=== PATIENT | male | born 1990 | race Caucasian/White ===

== ENCOUNTER 2018-07-31 17:04 | Emergency (ER) | payer SELFPAY ==
[2018-07-31 17:05] VITALS: BP 140/77; PULSE 89; RESP 16; TEMP 37.1; O2SAT 98; BMI 30.2
--- NOTE | 2018-07-31 17:26 | ED.VISSUMM ---
- ER Visit Summary Date of Service: 07/31/18 Chief Complaint: Left wrist pain History of Present Illness: The patient is a 28 M increasing left wrist pain since yesterday. Works for a moving company also increased cold. Reports have a found wrist fracture 2017 was referred to orthopedics Dr. Rubin. Reports there was needed surgery for likely osteotomy however he did not go through with this. Followed by Dr. Cleaning. Allergy Grandin due to reaction from treatment was placed on oxycodone previously. He does have a hard splint that he has been using. Tylenol Motrin taken with no relief. No new injuries. No paresthesias. Last prescription was a year ago per patient. Physical Examination: General: Alert and oriented ?3, no acute distress HEENT: Normocephalic, atraumatic. Moist mucosa membranes Neck: supple, nontender. Cardiovascular: Regular rate and rhythm, no murmurs Respiratory: Normal breath sounds, symmetric, no distress Abdomen: Soft, nontender, nondistended Extremities: Left upper extremity: Active range of motion elbow there is tenderness of the scaphoid bone. Skin intact. Neurovascular intact distally. Neuro: no focal neurological deficits. Test Results: [] Emergency Department Course and Treatment: Vital signs stable, records reviewed did have a confirmed fracture on x-ray 2017. History concerns for avascular necrosis of scaphoid that has not been surgically manage from recommendations. He states he has a second opinion follow-up with [facility] in 1 week. Orders report check last prescription was a year ago. Short prescription of Percocet. Follow with [facility] as scheduled. Treatment Plan: [] Disposition: Discharge Impression: 1. Left wrist pain 2. History avascular necrosis left scaphoid bone This note was generated with [employer] dictation software. It may contain incorrect words, spelling, and punctuation that were not noted in review of the chart prior to signing ED Disposition - Plan for ED Patient: Disposition: Home or Assisted Living Diagnosis: left wrist pain, hx avn left scaphoid Prescriptions: Oxycodone HCl/Acetaminophen [Percocet 5/325] 1 tablet PO Q6H PRN PRN 3 Days #12 tablet PRN Reason: Pain Referrals: Shai Cleaning MD [Primary Care Provider] - Additional Instructions: previous scaphoid fx in 2017 on left. likely AVN of scaphoid. keep appointment with ortho in 1 week.
== END 2018-07-31 17:44 | disposition home or self-care (01) ==
PROVIDERS: Emergency Provider Emergency Medicine; Family Provider Family Medicine; PCP Family Medicine
DX: M25.532 Pain in left wrist (principal); M87.9 Osteonecrosis, unspecified
CPT/HCPCS: 99282

== ENCOUNTER 2018-08-20 14:22 | Emergency (ER) | payer SELFPAY ==
[2018-08-20 14:23] VITALS: BP 161/79; PULSE 72; RESP 16; TEMP 36.6; O2SAT 97; BMI 29.4
--- NOTE | 2018-08-20 15:10 | ED.VISSUMM ---
- ER Visit Summary Date of Service: 08/20/18 Chief Complaint: [] Acute recurrent left wrist pain history of what sounds like avascular necrosis History of Present Illness: The patient is a 28 M [] reports he suffered a fracture involving 1 of his wrist bones to the thumb side sometime ago he is been seen multiple times orthopedics and it indicates that that bone and then he has a bone spur that is complicating his condition is been seen by [facility] hand physicians and he is scheduled to be seen by [facility] hand physicians related to a second opinion on further management he has no 1 who can prescribe him pain management, he is scheduled to see [facility] physicians tomorrow indicates the pain is such that even wearing the splint he has worsening pain he was given a short course of some unspecified medicine through the emergency department earlier this month and is wondering if he can have just a few of those tablets to help him sleep today there is been no trauma no other issues. He has no history of drug abuse or addiction Physical Examination: [] Vitals are unremarkable, he does have some snuffbox discomfort the left upper extremity otherwise unremarkable hand function is normal neurovascular function normal he assures me this is his chronic state Test Results: [] Emergency Department Course and Treatment: [] We went through a long list of potential medications he lists allergies to acetaminophen and hydrocodone it is unclear which medication he was actually given so I will speak with the drug [facility] where he got the prescription filled as whatever medication he was given he had no issues with it and he will be given 3 tablets to use at bedtime until he can establish pain management with his outpatient providers Treatment Plan: [] Disposition: [] Home stable Impression: [] Acute recurrent chronic left wrist pain This note was generated with [employer] dictation software. It may contain incorrect words, spelling, and punctuation that were not noted in review of the chart prior to signing ED Disposition - Plan for ED Patient: Referrals: Shai Cleaning MD [Primary Care Provider] -
--- NOTE | 2018-08-20 15:22 | ED.DEP ---
ED Disposition - Plan for ED Patient: Instructions: ED Fx Wrist Navicular Conf Prescriptions: Oxycodone HCl/Acetaminophen [Percocet 5/325] 1 tab PO Q6H PRN PRN #4 tab PRN Reason: Pain Referrals: Shai Cleaning MD [Primary Care Provider] -
[2018-08-20 15:53] VITALS: RESP 18; O2SAT 99
== END 2018-08-20 15:54 | disposition home or self-care (01) ==
PROVIDERS: Emergency Provider Emergency Medicine; Family Provider Family Medicine; PCP Family Medicine
DX: M25.532 Pain in left wrist (principal); G89.29 Other chronic pain
CPT/HCPCS: 99282

== ENCOUNTER 2018-08-22 14:49 | Emergency (ER) | payer SELFPAY ==
[2018-08-22 14:50] VITALS: BP 141/89; PULSE 66; RESP 16; TEMP 36.6; O2SAT 100; BMI 29.5
--- NOTE | 2018-08-22 15:26 | ED.VISSUMM ---
- ER Visit Summary Date of Service: 08/22/18 Chief Complaint: Wrist pain History of Present Illness: The patient is a 28 M with wrist pain it is chronic recurrent. He is known to have a scaphoid fracture probably about 12-15 years ago. He has chronic pain he is seeing a surgeon for this he has quite a bit of pain at night he has a new appointment in 2 days. Physical Examination: He is wearing a brace is neurovascularly intact he is quite a little bit of pain over the scaphoid and wrist region Patient will be treated with analgesia and discharged to follow-up with his surgeons Impression: Wrist pain chronic left This note was generated with [employer] dictation software. It may contain incorrect words, spelling, and punctuation that were not noted in review of the chart prior to signing ED Disposition - Plan for ED Patient: Disposition: Home or Assisted Living Prescriptions: Oxycodone HCl/Acetaminophen [Percocet 5/325] 1 tab PO Q6H PRN PRN 3 Days #10 tab PRN Reason: Pain Additional Instructions: Follow-up with your surgeons
--- NOTE | 2018-08-22 15:29 | ED.DCSUM_ITS ---
- ER Visit Summary Date of Service: 08/22/18 Chief Complaint: Wrist pain History of Present Illness: The patient is a 28 M with wrist pain it is chronic recurrent. He is known to have a scaphoid fracture probably about 12-15 years ago. He has chronic pain he is seeing a surgeon for this he has quite a bit of pain at night he has a new appointment in 2 days. Physical Examination: He is wearing a brace is neurovascularly intact he is quite a little bit of pain over the scaphoid and wrist region Patient will be treated with analgesia and discharged to follow-up with his surgeons Impression: Wrist pain chronic left This note was generated with [email or web address] dictation software. It may contain incorrect words, spelling, and punctuation that were not noted in review of the chart prior to signing ED Disposition - Plan for ED Patient: Disposition: Home or Assisted Living Prescriptions: Oxycodone HCl/Acetaminophen [Percocet 5/325] 1 tab PO Q6H PRN PRN 3 Days #10 tab PRN Reason: Pain Additional Instructions: Follow-up with your surgeons
== END 2018-08-22 15:54 | disposition home or self-care (01) ==
LOC: ED 15:44
PROVIDERS: Emergency Provider Emergency Medicine; Family Provider Family Medicine; PCP Family Medicine
DX: M25.532 Pain in left wrist (principal); G89.29 Other chronic pain
CPT/HCPCS: 99282

== ENCOUNTER 2018-09-15 16:43 | Emergency (ER) | payer SELFPAY ==
[2018-09-15 16:44] VITALS: BP 164/94; PULSE 80; RESP 17; TEMP 36.7; O2SAT 98; BMI 30.3
--- NOTE | 2018-09-15 17:12 | ED.DCSUM_ITS ---
- ER Visit Summary Date of Service: 09/15/18 Chief Complaint: Left wrist pain History of Present Illness: The patient is a 28 M with chronic left wrist pain secondary to a nonhealing scaphoid fracture. Patient has been referred to multiple doctors and is currently seeing , hand surgeon at [facility]. Patient needs to have 2 surgeries performed on his wrist. He is supposed to receive a call tomorrow to schedule for surgery which will be performed within the next 3 weeks. Patient states that he in the past has been given Percocet to help with his pain. He takes a half a tab at night to help him sleep. He is still working full-time and trying to support his family. His primary care physician states he is not able to write the patient for any pain medication. Patient states the hand surgeon told him he would not write pain medication until after a procedures performed. Physical Examination: Vital signs significant for blood pressure 164/94, otherwise unremarkable. Patient sitting in a bedside chair. Left upper extremity examination is in a Velcro wrist splint. Wrist splint is removed and patient has focal tenderness of the left scaphoid. He has strong distal pulses. Normal cap refill and sensation. He does have increased pain with wrist extension. There is no tenderness of the elbow or shoulder. Test Results: [] Emergency Department Course and Treatment: Did do an oars report. His last prescription was for 4 tabs of Percocet on August 20. Patient received a short course of Percocet and will talk to his orthopedic surgeon tomorrow to arrange his surgery. Treatment Plan: [] Disposition: Discharge Impression: Acute on chronic left wrist pain secondary to nonhealing scaphoid fracture This note was generated with [employer] dictation software. It may contain incorrect words, spelling, and punctuation that were not noted in review of the chart prior to signing ED Disposition - Plan for ED Patient: Referrals: Shai Cleaning MD [Primary Care Provider] -
--- NOTE | 2018-09-15 17:12 | ED.DEP ---
ED Disposition - Plan for ED Patient: Disposition: Home or Assisted Living Instructions: ED Fx Wrist Navicular Conf Prescriptions: Oxycodone HCl/Acetaminophen [Percocet 5/325] 1 tablet PO Q6H PRN PRN 5 Days #20 tablet PRN Reason: Pain Additional Instructions: Follow-up with your surgeon tomorrow as scheduled.
== END 2018-09-15 17:36 | disposition home or self-care (01) ==
LOC: ED 17:25
PROVIDERS: Emergency Provider Emergency Medicine; Family Provider Family Medicine; PCP Family Medicine
DX: S62.002G Unspecified fracture of navicular [scaphoid] bone of left wrist, subsequent encounter for fracture with delayed healing (principal); X58.XXXD Exposure to other specified factors, subsequent encounter; G89.29 Other chronic pain
CPT/HCPCS: 99282

== ENCOUNTER 2018-09-25 16:56 | Emergency (ER) | payer SELFPAY ==
[2018-09-25 16:58] VITALS: BP 134/73; PULSE 72; RESP 17; TEMP 36.8; O2SAT 95
--- NOTE | 2018-09-25 18:48 | ED.VISSUMM ---
- ER Visit Summary Date of Service: 09/25/18 Chief Complaint: Acute on chronic left wrist pain History of Present Illness: The patient is a 28 M history of a prior scaphoid fracture the never had cared for at the time of the injury. He developed a nonunion and has chronic left wrist pain. He seen a hand specialist at the [facility] in [place] and there is surgery upcoming at the end of September. Basically states with ibuprofen and ice is helping but he cannot sleep at night and was requesting something for pain. Physical Examination: Well-appearing young male. Vital signs are stable. Afebrile. No distress. HEENT exam unremarkable. Lungs clear to auscultation. Heart regular rhythm no murmur. Abdomen soft nontender. Remedies moves all 4. Left wrist mild tenderness at the medial aspect of the wrist. Mild swelling. He has full flexion limited extension normal radial and ulnar deviation. Left hand is neurovascular intact. No cellulitis. No lymphangitic streaking. He states this is normally how his wrist looks since the injury. Otherwise exam unremarkable. Test Results: None I did review her prior x-ray. Emergency Department Course and Treatment: He will continue his anti-inflammatories. I will write him for a limited Percocet. Treatment Plan: Motrin ice and elevate. Follow-up with his hand specialist. Disposition: discarge Impression: Acute on chronic left wrist pain with a known history of a scaphoid fracture with a nonunion This note was generated with [employer] dictation software. It may contain incorrect words, spelling, and punctuation that were not noted in review of the chart prior to signing ED Disposition - Plan for ED Patient: Referrals: Shai Cleaning MD [Primary Care Provider] -
--- NOTE | 2018-09-25 18:50 | ED.DEP ---
ED Disposition - Plan for ED Patient: Disposition: Home or Assisted Living Prescriptions: Oxycodone HCl/Acetaminophen [Percocet 5/325] 1 tab PO Q6H PRN PRN 10 Days #20 tab PRN Reason: Pain Referrals: Shai Cleaning MD [Primary Care Provider] - Additional Instructions: Ice to wrist. Motrin for pain. Very limited Percocet for chronic pain.
== END 2018-09-25 19:10 | disposition home or self-care (01) ==
PROVIDERS: Emergency Provider Emergency Medicine; Family Provider Family Medicine; PCP Family Medicine
DX: S62.002K Unspecified fracture of navicular [scaphoid] bone of left wrist, subsequent encounter for fracture with nonunion (principal); X58.XXXD Exposure to other specified factors, subsequent encounter; M25.532 Pain in left wrist; G89.29 Other chronic pain
CPT/HCPCS: 99282

== ENCOUNTER 2018-10-11 14:15 | Emergency (ER) | payer SELFPAY ==
[2018-10-11 14:16] VITALS: BP 171/83; PULSE 63; RESP 16; TEMP 36.3; O2SAT 100; BMI 29.5
--- NOTE | 2018-10-11 14:58 | ED.VISSUMM ---
- ER Visit Summary Date of Service: 10/11/18 Chief Complaint: [] Left wrist pain scheduled for surgery soon requesting refill of narcotic medications History of Present Illness: The patient is a 28 M [] has a history of left wrist pain injury possibly a navicular fracture he indicates is scheduled to be seen by [facility] hand surgeon sometime this month to have surgery to help relieve the pain he indicates he has been seeing multiple orthopedic surgeon, his primary care outpatient providers, he was seen by [facility] pain management, and these physicians prescribed nonnarcotic medications and otherwise have told him they cannot further manage his pain he presents the emergency department requesting a refill of his I believe Percocet medication, he indicates he received that medication only from the emergency department as no and also refill it the last time he received it was over a month ago when he made it last for the full month indicates he has no other physicians will prescribe this medication for him, he is wearing his splint he indicates there is been no new injury no new issues related to his extremity Physical Examination: [] Is in no distress left upper extremity has some discomfort over the snuffbox and hand function is normal the wrist and forearm appear unremarkable his general medical exam appears unremarkable Test Results: [] Emergency Department Course and Treatment: [] Long conversation with the patient I explained to him that given the current requirements and regulations set by the [facility] the [facility] and multiple other regulators the emergency department is not able to further manage his pain, the emergency department cannot provide him narcotic medications the last time he obtained them was likely related to a courtesy for him as he was in between providers and if he needed further pain management he must discuss options with his outpatient providers in the for other physicians he has been seeing, I did offer him IM Toradol and he refused that and he left the emergency department upset that his prescription was not refilled Treatment Plan: [] Disposition: [] Home stable Impression: [] Left wrist pain, dissatisfied with pain management requesting refill of narcotic medications This note was generated with [employer] dictation software. It may contain incorrect words, spelling, and punctuation that were not noted in review of the chart prior to signing ED Disposition - Plan for ED Patient: Referrals: Shai Cleaning MD [Primary Care Provider] -
--- NOTE | 2018-10-11 15:00 | ED.RN ---
PATIENT LEFT BEFORE BEING D/C.
--- NOTE | 2018-10-11 15:00 | ED.DEP ---
ED Disposition - Plan for ED Patient: Instructions: ED Fx Wrist General Referrals: Shai Cleaning MD [Primary Care Provider] - Additional Instructions: Please follow-up with your outpatient providers for further pain management options as the emergency department cannot provide narcotic medications on an ongoing basis or manage the chronic pain
--- NOTE | 2018-10-11 15:11 | ED.RN ---
PT LEFT PRIOR TO RECEIVING DISCHARGE INSTRUCTIONS.
== END 2018-10-11 15:16 | disposition home or self-care (01) ==
LOC: ED 15:09
PROVIDERS: Emergency Provider Emergency Medicine; Family Provider Family Medicine; PCP Family Medicine
DX: M25.532 Pain in left wrist (principal)
CPT/HCPCS: 99282

== ENCOUNTER 2018-11-01 11:58 | Emergency (ER) | payer SELFPAY ==
[2018-11-01 12:00] VITALS: BP 180/85; PULSE 79; RESP 17; TEMP 36.7; O2SAT 99; BMI 29.5
--- NOTE | 2018-11-01 12:16 | ED.VISSUMM ---
- ER Visit Summary Date of Service: 11/01/18 Chief Complaint: Left wrist pain History of Present Illness: The patient is a 28 M history of prior scaphoid fracture. A week ago underwent left wrist arthroscopic surgery to [facility] in [place]. Patient states he basically doubt the wrist. The other day he was walking through [facility] when an elderly female collapsed in front of him he performed CPR. Since that time he had wrist discomfort. Denies any fever. Physical Examination: Well-appearing young male. Vital signs are stable. Afebrile. No distress. H EENT exam unremarkable. Neck nontender no lymphadenopathy. Lungs clear to auscultation bilaterally. Heart regular rhythm no murmur. Abdomen soft nontender. Left wrist he has a short arm dressing on the wrist. It goes from his knuckles down to his proximal forearm. He has neurovascularly intact. He can open and closed without difficulty. Normal cap refill touch sensation. No significant swelling. No axillary lymphadenopathy. Normal range of motion of his left hand elbow and shoulder. Test Results: None Emergency Department Course and Treatment: Patient understands I am not can reevaluate his narcotic prescription is out of those from the orthopedic surgeons including clinic. He will be given one here to go for pain. Otherwise anti-inflammatories ice and elevate and follow-up with his orthopedic hand specialist the clinic. Treatment Plan: Follow-up with his event specialist product demonstrator. Disposition: Discharge Impression: Acute on chronic left wrist pain Status post left wrist arthroscopic surgery This note was generated with [employer] dictation software. It may contain incorrect words, spelling, and punctuation that were not noted in review of the chart prior to signing ED Disposition - Plan for ED Patient: Referrals: Shai Cleaning MD [Primary Care Provider] -
--- NOTE | 2018-11-01 12:19 | ED.DCSUM_ITS ---
- ER Visit Summary Date of Service: 11/01/18 Chief Complaint: Left wrist pain History of Present Illness: The patient is a 28 M history of prior scaphoid fracture. A week ago underwent left wrist arthroscopic surgery to [facility] in [place]. Patient states he basically doubt the wrist. The other day he was walking through [facility] when an elderly female collapsed in front of him he performed CPR. Since that time he had wrist discomfort. Denies any fever. Physical Examination: Well-appearing young male. Vital signs are stable. Afebrile. No distress. H EENT exam unremarkable. Neck nontender no lymphadenopathy. Lungs clear to auscultation bilaterally. Heart regular rhythm no murmur. Abdomen soft nontender. Left wrist he has a short arm dressing on the wrist. It goes from his knuckles down to his proximal forearm. He has neurovascularly intact. He can open and closed without difficulty. Normal cap refill touch sensation. No significant swelling. No axillary lymphadenopathy. Normal range of motion of his left hand elbow and shoulder. Test Results: None Emergency Department Course and Treatment: Patient understands I am not can reevaluate his narcotic prescription is out of those from the orthopedic surgeons including clinic. He will be given one here to go for pain. Otherwise anti-inflammatories ice and elevate and follow-up with his orthopedic hand specialist the clinic. Treatment Plan: Follow-up with his rehab specialist. Disposition: Discharge Impression: Acute on chronic left wrist pain Status post left wrist arthroscopic surgery This note was generated with [employer] dictation software. It may contain incorrect words, spelling, and punctuation that were not noted in review of the chart luca or to signing ED Disposition - Plan for ED Patient: Referrals: Shai Cleaning MD [Primary Care Provider] -
--- NOTE | 2018-11-01 12:20 | DCINST.ED_ITS ---
ED Disposition - Plan for ED Patient: Disposition: Home or Assisted Living Additional Instructions: Continue anti-inflammatories to your left wrist. Ice and elevate. Call follow-up with your orthopedic wrist specialist. I cannot refill your narcotic pain medication so continue your anti-infl ammatories.
[2018-11-01] MEDS: oxyCODONE 5 MG Tablet 10 MG PO (12:34)
[2018-11-01 12:35] VITALS: PULSE 77; RESP 14; O2SAT 98
== END 2018-11-01 12:36 | disposition home or self-care (01) ==
PROVIDERS: Emergency Provider Emergency Medicine; Family Provider Family Medicine; PCP Family Medicine
DX: M25.532 Pain in left wrist (principal); Z98.890 Other specified postprocedural states
CPT/HCPCS: 99282

== ENCOUNTER 2019-01-11 17:20 | Emergency (ER) | payer SELFPAY ==
[2019-01-11 17:21] VITALS: BP 165/74; PULSE 82; RESP 16; TEMP 36.7; O2SAT 98; BMI 28.0
--- NOTE | 2019-01-11 17:44 | ED.VISSUMM ---
- ER Visit Summary Date of Service: 01/11/19 Chief Complaint: Left wrist pain History of Present Illness: The patient is a 28 M a history of a prior scaphoid fracture of the left wrist. He underwent surgery couple months ago and is due to have surgery again for wrist fusion in 3 weeks. He tells me that during the day he feels okay but at nighttime the pain wakes him up. Tells me his orthopedic surgeon wanted him to see pain management but at that time it was going to be months before his next surgery. Then a new appointment opened up which is available in 3 weeks. His surgeon told him that he could not write him any more pain medication until after the surgery. Pain management told him they will not see him until after the surgery. His family doctor told him that they cannot write the pain medication for this. He has been here multiple times in the spring for short courses of pain medication. He has not had any prescriptions for narcotics filled since October. He understands that this is a chronic condition and he is in the emergency department where we treat acute care. He states that he is in a bind and he does not know what to do. Is been trying anti-inflammatories with mild success. Physical Examination: Afebrile vital signs stable Well-healed surgical wounds to the left wrist. There is no obvious acute injury swelling or evidence of infection. Emergency Department Course and Treatment: I did an oars report. Patient is definitely in a tight spot. Is not clear to me why any of his providers cannot write him pain medication for a condition that he is known to have that they have treated. It is certainly not the role of the emergency department to treat chronic pain. Patient understands this. However I do feel for the gentleman and he appears to be truthful. I am going to be able to write him 12 Percocet tablets. Impression: 1. Chronic left wrist pain This note was generated with [employer] dictation software. It may contain incorrect words, spelling, and punctuation that were not noted in review of the chart prior to signing ED Disposition - Plan for ED Patient: Disposition: Home or Assisted Living Instructions: Chronic Pain Prescriptions: Oxycodone HCl/Acetaminophen [Percocet 5/325] 1 tab PO Q6H PRN PRN 3 Days #12 tab PRN Reason: Pain Prescription Printed Referrals: Shai Cleaning MD [Primary Care Provider] - Additional Instructions: The emergency department cannot be your source of pain management. 1 of your doctors whom you are established that has seen you for this condition needs to be the one writing pain medication.
== END 2019-01-11 17:56 | disposition home or self-care (01) ==
PROVIDERS: Emergency Provider Emergency Medicine; Family Provider Family Medicine; PCP Family Medicine
DX: M25.532 Pain in left wrist (principal); G89.29 Other chronic pain
CPT/HCPCS: 99282

== ENCOUNTER 2019-02-21 14:28 | Emergency (ER) | payer SELFPAY ==
[2019-02-21 14:29] VITALS: BP 149/82; PULSE 92; RESP 18; TEMP 36.4; O2SAT 99; BMI 27.6
--- NOTE | 2019-02-21 14:49 | ED.VIS.UPPEX ---
History of Present Illness Chief Complaint: Upper Extremity Injury Informant: Patient Occurred: Days - 3, Month(s) Mechanism/Context: Injury Onset: Days - 3 Context: Sudden Onset Timing: Continuous Quality of Pain: Throbbing Location: left wrist Current Severity: Severe Maximum Severity: Severe Worsened by: Movement and palpation Relieved by: Nothing Associated Symptoms: Negative for: Parasthesia, Weakness, Loss of Funtion Narrative: 29-year-old male [id number] presents with left wrist pain. Patient has a history of avascular necrosis left scaphoid he is undergoing repair at [facility] next month he is been having increasing pain at night and difficulty sleeping. No trauma no redness or swelling or fevers. No numbness or tingling. He has been compliant he states with his brace that he wears at night. He is requesting something stronger for pain. Tetanus Immunization: Unknown Prior similar symptoms: Yes Recent Illness/Hospitalization: No Past Medical History - Allergies and Home Meds Allergies/Adverse Reactions: Allergies acetaminophen [From [place]] Adverse Reaction (Verified 02/21/19 14:28) Unknown hydrocodone [From [place]] Adverse Reaction (Verified 02/21/19 14:28) Unknown RASH Primary Care Physician: Shai Cleaning MD [Primary Care Provider] - Prior records reviewed: Yes Past Medical History: None Surgical History: no surgical history Lives: With Family Smoking Status: Current every day smoker Review of Systems All systems negative except as indicated Musculoskeletal: Reports: Extremity Pain Physical Exam Vital Signs/Narrative: Vital Signs Temp Pulse Resp BP Pulse Ox 02/21/19 14:29 97.5 F L 92 18 149/82 H 99 Left Wrist: - - Normal inspection of left wrist. No redness no warmth no rash no lymphatic streaking or swelling. Pain on palpation around the snuffbox, there is no other bony tenderness of the left hand or wrist. He is able to fully flex and extend the wrist but it is painful. Radial pulse is normal. Capillary refill and sensation of all 5 fingers is normal.. Negative for: Abrasion, Contusion, Deformity, Edema, Hematoma, Limited ROM Diagnostic/Tx/Re-eval - Medical Decision Making [facility] report shows no recent prescriptions. He has no evidence of septic joint. He has not suffered another injury that would require imaging. He will be given a short course of analgesia he will continue to wear his splint he will rest and ice and follow-up with his orthopedic surgeon at [facility] as scheduled. ED Disposition - Plan for ED Patient: Disposition: Home or Assisted Living Diagnosis: Chronic pain of left wrist, Avascular necrosis of scaphoid Instructions: Managing Chronic Pain: Activity, Managing Chronic Pain: Medications Prescriptions: Oxycodone HCl/Acetaminophen [Percocet 5/325] 1 tab PO Q6H PRN PRN 3 Days #12 tab PRN Reason: Pain Prescription Printed Referrals: Shai Cleaning MD [Primary Care Provider] -
== END 2019-02-21 15:01 | disposition home or self-care (01) ==
PROVIDERS: Emergency Provider Physician Assistant Medical; Family Provider Family Medicine; PCP Family Medicine
DX: M87.038 Idiopathic aseptic necrosis of left carpus (principal); G89.29 Other chronic pain; F17.200 Nicotine dependence, unspecified, uncomplicated; Z88.5 Allergy status to narcotic agent
CPT/HCPCS: 99282

== ENCOUNTER 2019-02-27 18:45 | Emergency (ER) | payer SELFPAY ==
[2019-02-27 18:46] VITALS: BP 151/101; PULSE 75; RESP 15; TEMP 36.7; O2SAT 100; BMI 27.1
--- NOTE | 2019-02-27 18:57 | ED.VIS.GEN ---
History of Present Illness Chief Complaint: Upper Extremity Injury Detail of Chief Complaint: Left wrist pain Informant: Patient Onset: - - Chronic pain, worsened over the past 2 days Current Severity: Moderate Maximum Severity: Moderate Narrative: Patient has a history of chronic left wrist pain secondary to avascular necrosis. He has had multiple surgeries on it previously. His hand surgeon in [place] wants to do a wrist fusion. He will be off work for 6 months for this. 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 He is hoping to have it done as soon as his work schedule slows down. Patient had increased activity over the past few days with work and now has increased pain. His primary care physician has stated that he will not provide pain medication for the patient. Patient tried to see 1 of the pain management doctors in [facility] who told him he does need to have the surgery done, there is nothing else he could do for him. Past Medical History - Allergies and Home Meds Allergies/Adverse Reactions: Allergies hydrocodone [From [place]] Adverse Reaction (Verified 02/21/19 14:28) Unknown RASH Primary Care Physician: Shai Cleaning MD [Primary Care Provider] - Prior records reviewed: Yes Past Medical History: - - Reviewed Surgical History: no surgical history, - - Left wrist Lives: With Family Smoking Status: Never smoker Review of Systems General: Denies: Chills, Fever ENT: Denies: Bilateral ear pain Cardiovascular: Denies: Chest pain Respiratory: Denies: Dyspnea Gastrointestinal: Denies: Abdominal pain Musculoskeletal: Reports: Arthralgias, Extremity Pain Skin: Denies: Wounds Neurological: Denies: Numbness Hematologic: Denies: Easy bruising Allergy: Denies: Uticaria Physical Exam Vital Signs/Narrative: Vital Signs Temp Pulse Resp BP Pulse Ox 02/27/19 18:46 98.1 F 75 15 151/101 H 100 Inital Vital Signs reviewed: Yes General: Well nourished, Well developed ENT: Moist mucous membranes Cardiovascular: Regular rate, Regular rhythm Respiratory: No distress, CTA bilaterally Abdomen: Soft, Nontender Extremities: - - Mild diffuse tenderness throughout the left wrist, worse of the radial aspect. No acute skin changes. Good cap refill noted distally with good sensation. No tenderness of the elbow or shoulder. Skin: Normal color Neurological: Alert, Oriented x3 Psychological: Normal affect Diagnostic/Tx/Re-eval - Medical Decision Making Patient has been seen in the ED multiple times for similar. I did do an [facility] report. His last prescription was for 12 tabs of Percocet on February 21. I reminded the patient again that we cannot be managing chronic pain here in the emergency room. This appears to be an acute flare and I will write him a prescription for 10 tabs only. He will be given a phone number for another pain management physician in [facility] to try. ED Disposition - Plan for ED Patient: Disposition: Home or Assisted Living Diagnosis: Strain of left wrist Instructions: Wrist Sprain Prescriptions: Oxycodone HCl/Acetaminophen [Percocet 5/325] 1 tablet PO Q6H PRN PRN 3 Days #10 tablet PRN Reason: Pain Referrals: Shai Cleaning MD [Primary Care Provider] - Cholo Osborne [NON-STAFF] - As soon as possible
[2019-02-27 19:02] VITALS: BP 123/92; PULSE 68; RESP 15; O2SAT 99
== END 2019-02-27 19:23 | disposition home or self-care (01) ==
LOC: ED 19:10
PROVIDERS: Emergency Provider Emergency Medicine; Family Provider Family Medicine; PCP Family Medicine
DX: S66.912A Strain of unspecified muscle, fascia and tendon at wrist and hand level, left hand, initial encounter (principal); X58.XXXA Exposure to other specified factors, initial encounter; Y93.9 Activity, unspecified; Y92.9 Unspecified place or not applicable; Y99.9 Unspecified external cause status; M87.9 Osteonecrosis, unspecified; G89.29 Other chronic pain; Z88.5 Allergy status to narcotic agent
CPT/HCPCS: 99282